=== PATIENT | female | born 1965 | race Caucasian/White ===

== ENCOUNTER 2021-01-20 16:44 | Inpatient (IN) | payer MEDICARE, OTHER ==
[~2021-01-20] VITALS: Ht 170.2 cm; Wt 77.6 kg
--- NOTE | 2021-01-20 16:57 | NUR ---
TO ER BED 13, BIB RA [facility],WHEN ASKED IF W/SI,ANSWERED "I'M TIRED OF TAKING CARE OF MYSELF, AAOX3, BREATHING EVEN AND NON LABORED, CONNECTED TO MONITOR, AWAITING MD ORDERS
--- NOTE | 2021-01-20 17:45 | NUR ---
URINE COLLECTED AND SENT TO LAB
[2021-01-20 19:05] LABS: CALCIUM, SERUM 8.2 mg/dL (8.5-10.1); CARBON DIOXIDE 33 mmol/L (21-32); CHLORIDE 105 mmol/L (98-107); CREATININE 0.6 mg/dL (0.6-1.3); GLUCOSE 99 mg/dL (74-106); POTASSIUM 3.1 mmol/L (3.5-5.1); SODIUM SERUM 142 mmol/L (136-145); UREA NITROGEN, BLOOD 20 mg/dL (7-18)
[2021-01-20 19:12] LABS: ALANINE AMINOTRANSFERASE 17 U/L (12-78); ALBUMIN 2.9 g/dL (3.4-5.0); ALKALINE PHOSPHATASE 107 U/L (46-116); ASPARTATE AMINOTRANSFERASE 13 U/L (15-37); BILIRUBIN,DIRECT 0.1 mg/dL (0.0-0.2); BILIRUBIN,TOTAL 0.3 mg/dL (0.2-1.0); TOTAL PROTEIN, SERUM 6.6 g/dL (6.4-8.2)
[2021-01-20 19:13] LABS: ALCOHOL, BLOOD < 3 mg/dL (0-0)
[2021-01-20 19:14] LABS: ACETAMINOPHEN 10 ug/ml (10-30)
[2021-01-20 20:22] LABS: BASOPHILS % (AUTO) 0.6 % (0.0-2.0); EOSINOPHILS % (AUTO) 1.7 % (0.0-6.0); HEMATOCRIT 31 % (33-45); HEMOGLOBIN 9.5 g/dL (11.5-14.8); LYMPHOCYTES # (AUTO) 1.1 K/uL (0.8-4.8); LYMPHOCYTES % (AUTO) 24.5 % (20.0-44.0); MEAN CORPUSCULAR HGB CONC 31 g/dl (31.0-36.0); MEAN CORPUSCULAR VOLUME 74 fL (82-100); MONOCYTES # (AUTO) 0.5 K/uL (0.1-1.30); MONOCYTES % (AUTO) 11.5 % (2.0-12.0); NEUTROPHILS # (AUTO) 2.8 K/uL (1.8-8.9); NEUTROPHILS % (AUTO) 61.7 % (43.0-81.0); PLATELET COUNT (AUTO) 226 K/uL (150-450); RED BLOOD CELL COUNT(AUTO) 4.16 MIL/uL (4.0-5.2); WHITE BLOOD COUNT (AUTO) 4.5 K/uL (4.3-11.0)
[2021-01-20 21:53] LABS: BILIRUBIN,URINE NEGATIVE (NEGATIVE); COLOR,URINE YELLOW (YELLOW); LEUKOCYTE ESTERASE ,URINE NEGATIVE (NEGATIVE); NITRITE, URINE NEGATIVE (NEGATIVE); PH,URINE 6.5 (5.0-8.0); PROTEIN,URINE NEGATIVE (NEGATIVE); UGLUCOSE NEGATIVE (NEGATIVE); UROBILINOGEN,URINE 0.2 EU/dL (0.2)
[2021-01-21] MEDS ORDERED: POTASSIUM CHLORIDE 20 MEQ TAB.PRT.SR PO ONE ×2 (00:30→01:31)
--- NOTE | 2021-01-21 00:44 | NUR ---
ROOM ASSIGNMENT: 212-2 GPS
--- NOTE | 2021-01-21 01:55 | NUR ---
REPOT GIVEN TO SUDHEER CABRERA FOR KAYCEE
[2021-01-21 03:00] VITALS: BP 134/78
[2021-01-21 03:21] VITALS: BP 134/78
--- NOTE | 2021-01-21 03:21 | NUR ---
GPS ADMISSION NOTE, RECEIVED PATIENT FROM [facility]/ [facility] PATIENT ARRIVED ON THIS UNIT AT 0321 VIA STRETCHER WITH 2 EMT ESCORTS. PATIENT ADMITTED ON A 5150 HOLD FOR DTS. PER HOLD PATIENT IS ALERT AND ORIENTED X 3 BROUGHT IN BY EMS FROM [facility] DUE TO SUICIDAL IDEATIONS. PATIENT IS DEPRESSED, ANGRY, AND DOES NOT WANT TO LIVE ANYMORE. PATIENT WANTS TO END HER LIFE WITH A PLAN TO OVERDOSE ON MEDICATION. PATIENT STATES, " I DO NOT WANT TO GO ON ANYMORE. THE 5150 WAS REVIEWED AND THE DOCUMENTATION IN THE 5150 HOLD APPEARS TO REFLECT THE PRESENTATION OF THE PATIENT. UPON FACE TO FACE ASSESSMENT PATIENT IS NOTED TO BEING ANGRY, DISHEVELED, DEMANDING, UNCOOPERATIVE, AND NEEDS REDIRECTION. PATIENT IS CURRENTLY LYING IN BED AWAKE, HAS NO S/S OR COMPLAINTS OF PAIN. PATIENT IS DISPLAYING NO S/S OF APPARENT DISTRESS. PATIENT BREATHING IS UNLABORED WITH EQUAL RISE AND FALL OF THE CHEST. PATIENT IS ALERT AND ORIENTATED X 3 ON ROOM AIR. PATIENT ASSISTED WITH TURING AND REPOSITIONING Q2HR AND PRN FOR COMFORT AND CIRCULATION. PATIENT HAS NO NEEDS AT THIS TIME. PATIENT DENIES HOMICIDAL IDEATIONS AT THIS TIME. PATIENT REFUSED TO SIGNS ANY PAPER WORK AND WANTS TO DO IT AFTER BREAKFAST. PATIENT ADVISED OF HER HOLD AND PATIENT RIGHTS BOOKLET GIVEN. PATIENT IS UNDER THE PSYCHIATRIC CARE OF DR. MCCLURE AND THE MEDICAL CARE OF DR JIANG. PATIENT BELONGINGS WERE INVENTORIED AND CHECKED FOR CONTRABAND. ALL CONTRABAND REMOVED AND STORED IN PATIENT HALLWAY LOCKER. PATIENT ADVANCED DIRECTIVES PREFERENCE, IMMUNIZATIONS QUESTIONER, NECESSARY PAPERWORK COMPLETED. PATIENT REFUSED FULL SKIN ASSESSMENT. PATIENT ORIENTATED TO ROOM, FLOOR, AND STAFF WITH ALL QUESTIONS ANSWERED. PATIENT EDUCATED ON THE USE OF THE CALL KANG. PATIENT BED SIDE RAILS ARE UP X 2 FOR SAFETY. PATIENT BED IS LOCKED, LOW AND I WILL CONTINUE TO MONITOR THIS PATIENT Q 15 MIN WITH THE HELP OF STAFF TO MAINTAIN SAFETY.
--- NOTE | 2021-01-21 03:25 | NUR ---
PATIENT TRANSFERRED, NO ACUTE DISTRESS NOTED.
[2021-01-21] MEDS ORDERED: ATOR40TA PO (04:51)
[2021-01-21] MEDS ORDERED: OMEP40CA21 PO (04:51)
[2021-01-21] MEDS ORDERED: LURA40TA PO (04:53)
[2021-01-21] MEDS ORDERED: NITR100C6 PO (04:53)
[2021-01-21] MEDS ORDERED: MULT-754 PO (04:54)
[2021-01-21] MEDS ORDERED: BIOT5000 PO (04:55)
[2021-01-21] MEDS ORDERED: FEXO180T94 PO (04:56)
[2021-01-21] MEDS ORDERED: TEMAZEPAM 7.5 MG CAPSULE PO PRN (05:00)
[2021-01-21] MEDS ORDERED: LORAZEPAM 0.5 MG TABLET PO PRN (05:00)
[2021-01-21] MEDS ORDERED: MAGNESIUM HYDROXIDE 30 ML UDC PO PRN (05:00)
[2021-01-21] MEDS ORDERED: BLOOD SUGAR DIAGNOSTIC 1 EACH STRIP IN ONE (05:30)
[2021-01-21 08:00] VITALS: BP 118/72
--- NOTE | 2021-01-21 09:35 | NUR ---
WOUND CARE CONSULT: PT ADAMANTLY REFUSED SKIN ASSESSMENT. REVIEWED CHART, NURSING DOCUMENTATION AND PHOTOS WHICH INDICATE STAGE 4 PRESSURE ULCER TO RT ISCHIUM AND DEEP TISSUE INJURY TO LEFT POSTERIOR KNEE, PRESENT ON ADMISSION. RECOMMENDATIONS MADE FOR WOUND CARE AND SKIN PROTECTION. DISCUSSED WITH NURSING STAFF. MD IN AGREEMENT WITH PLAN OF CARE.
[2021-01-21] MEDS ORDERED: HYDROGEL DRESSING 90 GM TUBE TP PRN (10:00)
[2021-01-21] MEDS ORDERED: Z GUARD REMEDY 2 OZ OINT TP PRN (10:00)
--- NOTE | 2021-01-21 10:05 | NUR ---
Treatment Plan: Pt refused to sign treatment plan and stated "I do not want to sign anything".
--- NOTE | 2021-01-21 10:18 | NUR ---
KATHRYN Initial Plan: Patient currently resides at [facility] located at [address] [address]; ([phone]). KATHRYN spoke with Tre the rail layer and he stated pt is welcomed back upon dc. Pt would want to return back to her facility upon dc. KATHRYN will work with the MD and treatment team to help coordinate.
[2021-01-21] MEDS: HYDROGEL DRESSING 90 GM TUBE TP SCH (12:12)
--- NOTE | 2021-01-21 13:00 | NUR ---
gps customer operations associate: plastic surgeon consult pat (load checker) at bedside and assessed right ischial wound and informed pt that it needs a debridement, pt verbalized understanding and consent signed. excisional debridement done at bedside to right ischial wound, ananth. well. photo taken after wound debridement and place in chart.
--- NOTE | 2021-01-21 14:10 | NUR ---
gps product blending supervisor: psychiatrist dr. oliva talking to pt at bedside at this time.
[2021-01-21 16:00] VITALS: BP 106/58
[2021-01-21] MEDS: ARIPIPRAZOLE 5 MG TABLET PO SCH ×2 (17:44→23:35)
[2021-01-21] MEDS: ATORVASTATIN 40 MG TABLET PO SCH (17:45)
[2021-01-21] MEDS: FEXOFENADINE HCL (60 MG) 60 MG TABLET PO SCH (17:45)
[2021-01-21 20:00] VITALS: BP 112/69
[2021-01-21] MEDS ORDERED: ARIPIPRAZOLE 2 MG TABLET PO SCH (22:00)
[2021-01-22] MEDS: ARIPIPRAZOLE 5 MG TABLET PO SCH ×3 (06:08→17:58)
--- NOTE | 2021-01-22 06:12 | NUR ---
RN NOTES OFFERED TO CHANGE COLOSTOMY BAG, PATIENT REFUSED AND " I DO IT MYSELF, I NEED YOU TO PROVIDE THINGS FOR ME." PATIENT HAS HER OWN COLOSTOMY SUPPLIES. ALSO, AD HERRERA OFFERED TO DO HYGIENE CARE, PATIENT ALSO REFUSED AND TOLD TRACK REPAIR SUPERVISOR TO DO IT LATER.
[2021-01-22 08:00] VITALS: BP 102/60
[2021-01-22] MEDS: MULTIVITAMINS,THERAGRAN 1 UDTAB TABLET PO SCH (08:34)
[2021-01-22] MEDS: HYDROGEL DRESSING 90 GM TUBE TP SCH (08:34)
[2021-01-22] MEDS ORDERED: Medication Not On Formulary EA (Omeprazole 1 CAP) PO SCH (09:00)
[2021-01-22 10:59] LABS: BASOPHILS % (AUTO) 0.6 % (0.0-2.0); EOSINOPHILS % (AUTO) 1.8 % (0.0-6.0); HEMATOCRIT 28 % (33-45); HEMOGLOBIN 8.9 g/dL (11.5-14.8); LYMPHOCYTES # (AUTO) 0.7 K/uL (0.8-4.8); LYMPHOCYTES % (AUTO) 15.8 % (20.0-44.0); MEAN CORPUSCULAR HGB CONC 32 g/dl (31.0-36.0); MEAN CORPUSCULAR VOLUME 72 fL (82-100); MONOCYTES # (AUTO) 0.5 K/uL (0.1-1.30); MONOCYTES % (AUTO) 11.7 % (2.0-12.0); NEUTROPHILS # (AUTO) 3.3 K/uL (1.8-8.9); NEUTROPHILS % (AUTO) 70.1 % (43.0-81.0); PLATELET COUNT (AUTO) 215 K/uL (150-450); WHITE BLOOD COUNT (AUTO) 4.6 K/uL (4.3-11.0)
[2021-01-22 11:11] LABS: CREATININE 0.5 mg/dL (0.6-1.3); POTASSIUM 3.9 mmol/L (3.5-5.1)
[2021-01-22 16:00] VITALS: BP 104/64
[2021-01-22] MEDS: ATORVASTATIN 40 MG TABLET PO SCH (17:58)
[2021-01-22] MEDS: FEXOFENADINE HCL (60 MG) 60 MG TABLET PO SCH (17:59)
[2021-01-22 20:21] VITALS: BP 116/64
[2021-01-22 20:26] VITALS: BP 116/64
[2021-01-23] MEDS: ARIPIPRAZOLE 5 MG TABLET PO SCH ×4 (00:41→17:28)
[2021-01-23 08:00] VITALS: BP 120/68
[2021-01-23] MEDS: MULTIVITAMINS,THERAGRAN 1 UDTAB TABLET PO SCH (09:00)
[2021-01-23] MEDS: HYDROGEL DRESSING 90 GM TUBE TP SCH (09:00)
[2021-01-23 16:00] VITALS: BP 122/68
[2021-01-23] MEDS: FEXOFENADINE HCL (60 MG) 60 MG TABLET PO SCH (17:28)
[2021-01-23] MEDS: ATORVASTATIN 40 MG TABLET PO SCH (17:28)
[2021-01-24] MEDS: ARIPIPRAZOLE 5 MG TABLET PO SCH ×2 (00:10→06:18)
--- NOTE | 2021-01-24 01:24 | NUR ---
Wound care given. Pictures taken. Pt. cooperative. Does, however, prefer female staff.
[2021-01-24 08:00] VITALS: BP 100/62
--- NOTE | 2021-01-24 08:00 | NUR ---
1:1 CAREGIVER NOT PROVIDED BY NURSING PARAMEDIC RN.
[2021-01-24] MEDS: HYDROGEL DRESSING 90 GM TUBE TP SCH (09:18)
[2021-01-24] MEDS: MULTIVITAMINS,THERAGRAN 1 UDTAB TABLET PO SCH (09:18)
--- NOTE | 2021-01-24 11:07 | NUR ---
KATHRYN Coordination of Care: Patient will follow up with (Psychiatrist) Dr. Caro Paulino located at [address], [place] [address];([phone]) February 14 at 12PM via zoom. Per Josh law office receptionist.
--- NOTE | 2021-01-24 15:48 | NUR ---
Individual Therapy: SW met with pt. at bedside. Pt. stated her current mood is "okay". Pt. wanted to discuss her DC Date. Pt. stated she is agreeable to return to previous facility: [facility] and stated she already currently has a therapist, Kim Russell & a psychiatrist at [facility]. Pt. denies any current SI. Pt. stated she did not want to process anything else with SW. SW discussed with other SW, Jai who stated thats he has discussed potential DC date with pt. Noted.
[2021-01-24 16:00] VITALS: BP 121/69
[2021-01-24] MEDS: FEXOFENADINE HCL (60 MG) 60 MG TABLET PO SCH (17:00)
[2021-01-24] MEDS: ATORVASTATIN 40 MG TABLET PO SCH (17:00)
[2021-01-24 20:03] VITALS: BP 111/56
[2021-01-24] MEDS ORDERED: ARIPIPRAZOLE 5 MG TABLET PO SCH (21:00)
[2021-01-24] MEDS: MAG HYDROX/AL HYDROX/SIMETH 30 ML UDC PO PRN (22:50)
[2021-01-25 08:00] VITALS: BP 101/58
[2021-01-25] MEDS ORDERED: ARIPIPRAZOLE 5 MG TABLET PO SCH ×2 (08:00→08:41)
[2021-01-25] MEDS: MULTIVITAMINS,THERAGRAN 1 UDTAB TABLET PO SCH (08:58)
[2021-01-25] MEDS ORDERED: ARIPIPRAZOLE 2 MG TABLET PO SCH (09:00)
[2021-01-25] MEDS: HYDROGEL DRESSING 90 GM TUBE TP SCH (09:10)
[2021-01-25] MEDS: MAG HYDROX/AL HYDROX/SIMETH 30 ML UDC PO PRN (12:03)
--- NOTE | 2021-01-25 12:04 | NUR ---
MAALOX GIVEN FOR INDIGESTION. WILL CONTINUE TO MONITOR.
[2021-01-25] MEDS ORDERED: LORAZEPAM 1 MG TABLET PO STA (12:44)
--- NOTE | 2021-01-25 12:52 | NUR ---
PER PSYCHIATRIST ATIVAN 1MG PO X1 GIVEN FOR AGITATION AND SCREAMING. WILL CONTINUE TO MONITOR.
[2021-01-25] MEDS: ARIPIPRAZOLE 5 MG TABLET PO SCH (13:52)
[2021-01-25 15:51] VITALS: BP 133/72
[2021-01-25] MEDS: FEXOFENADINE HCL (60 MG) 60 MG TABLET PO SCH (17:02)
[2021-01-25] MEDS: ATORVASTATIN 40 MG TABLET PO SCH (17:02)
[2021-01-25 20:15] VITALS: BP 110/71
--- NOTE | 2021-01-26 06:38 | NUR ---
RN NOTES, PATIENT AWAKE AT THIS TIME, WITH ADEQUATE HOURS OF SLEEP, REFUSED WOUND TREATMENT LAST NIGHT, STATED WANT TO HAVE IT IN AM, EXPLAINED RISKS AND BENEFITS, STILL REFUSE, NO SIGNIFICANT CHANGE IN CONDITION, WITH FLAT AFFECT, DENIES SI/HI, NO EPISODES OF AGITATION/AGGRESSIVE BEHAVIOR NOTED DURING THE NIGHT, WILL ENDORSE CONTINUITY OF CARE TO ONCOMING NURSE.
[2021-01-26 08:00] VITALS: BP 100/53
[2021-01-26] MEDS: ARIPIPRAZOLE 5 MG TABLET PO SCH (08:53)
[2021-01-26] MEDS: MULTIVITAMINS,THERAGRAN 1 UDTAB TABLET PO SCH (08:53)
[2021-01-26] MEDS: HYDROGEL DRESSING 90 GM TUBE TP SCH (09:18)
--- NOTE | 2021-01-26 10:00 | NUR ---
RN-NOTES DID WOUND TREATMENT ORDERED. PATIENT TOLERATED WELL.
--- NOTE | 2021-01-26 11:42 | NUR ---
Court Hearing: Patient's court hearing for 7740 was today and it was upheld for GD.
--- NOTE | 2021-01-26 11:56 | NUR ---
Transportation: [employer] [facility] is set for 01/31 at 1PM through [employer] ([phone]) who quoted $85.50 and the pt will pay for this.
--- NOTE | 2021-01-26 11:57 | NUR ---
SW Note: SW noted of pt her dc date and that she would have to pay for transportation through [employer] ([phone]) who quoted $85.50. Pt was agreeable of paying for this.
--- NOTE | 2021-01-26 13:01 | NUR ---
RN-NOTES BOX MACHINE OPERATOR GIVEN THE PATIENT THE WRIT FORM TO FILL UP, BUT PATIENT STATED" I WILL BE DISCHARGE BY SUNDAY AND THERE IS NO POINT TO FILE A WRIT IF ITS GOING TO BE DONE BY SUNDAY". KATHRYN AND DR. MCCLURE WAS MADE AWARE.
--- NOTE | 2021-01-26 13:24 | NUR ---
Transportation: [employer] [facility] is set for 01/31 at 1PM through [employer] ([phone]) who quoted $85.50. Pt spoke with [facility] [employer] [facility] and paid for transportation. SW was present.
[2021-01-26 16:00] VITALS: BP 111/70
[2021-01-26] MEDS: ATORVASTATIN 40 MG TABLET PO SCH (17:33)
[2021-01-26] MEDS: FEXOFENADINE HCL (60 MG) 60 MG TABLET PO SCH (17:33)
[2021-01-26 20:00] VITALS: BP 111/62
[2021-01-26] MEDS: ACETAMINOPHEN 325 MG TABLET PO PRN (20:19)
[2021-01-26] MEDS ORDERED: ARIPIPRAZOLE 5 MG TABLET PO SCH (21:00)
[2021-01-27 08:00] VITALS: BP 108/64
[2021-01-27] MEDS: MULTIVITAMINS,THERAGRAN 1 UDTAB TABLET PO SCH (08:34)
[2021-01-27] MEDS: ARIPIPRAZOLE 5 MG TABLET PO SCH ×2 (08:34→20:37)
[2021-01-27] MEDS: HYDROGEL DRESSING 90 GM TUBE TP SCH (08:35)
--- NOTE | 2021-01-27 10:30 | NUR ---
RN-NOTES DID WOUND TREATMENT ORDERED. PATIENT TOLERATED WELL.
[2021-01-27 16:00] VITALS: BP 119/75
[2021-01-27] MEDS: ATORVASTATIN 40 MG TABLET PO SCH (17:10)
[2021-01-27] MEDS: FEXOFENADINE HCL (60 MG) 60 MG TABLET PO SCH (17:10)
[2021-01-27 20:00] VITALS: BP 100/57
[2021-01-27] MEDS: MAG HYDROX/AL HYDROX/SIMETH 30 ML UDC PO PRN (20:51)
--- NOTE | 2021-01-27 20:52 | NUR ---
RN NOTES: PT. C/O INDIGESTIONS PRN MAALOX 30 ML PO GIVEN PER PT. REQUEST , WILL CONTINUE TO MONITOR.
[2021-01-28 08:00] VITALS: BP 100/59
[2021-01-28] MEDS: MULTIVITAMINS,THERAGRAN 1 UDTAB TABLET PO SCH (08:34)
[2021-01-28] MEDS: ARIPIPRAZOLE 5 MG TABLET PO SCH ×3 (08:34→20:16)
[2021-01-28] MEDS: HYDROGEL DRESSING 90 GM TUBE TP SCH (08:35)
[2021-01-28] MEDS: ACETAMINOPHEN 325 MG TABLET PO PRN (14:25)
[2021-01-28] MEDS: MAG HYDROX/AL HYDROX/SIMETH 30 ML UDC PO PRN (14:51)
[2021-01-28 15:42] VITALS: BP 125/78
[2021-01-28] MEDS: ATORVASTATIN 40 MG TABLET PO SCH (17:48)
[2021-01-28] MEDS: FEXOFENADINE HCL (60 MG) 60 MG TABLET PO SCH (17:49)
[2021-01-28 20:41] VITALS: BP 109/78
[2021-01-29 08:00] VITALS: BP 116/65
[2021-01-29] MEDS: MULTIVITAMINS,THERAGRAN 1 UDTAB TABLET PO SCH (08:28)
[2021-01-29] MEDS: ARIPIPRAZOLE 5 MG TABLET PO SCH ×2 (08:28→20:49)
[2021-01-29] MEDS: HYDROGEL DRESSING 90 GM TUBE TP SCH (08:28)
[2021-01-29 16:00] VITALS: BP 111/61
[2021-01-29] MEDS: MAG HYDROX/AL HYDROX/SIMETH 30 ML UDC PO PRN (16:52)
[2021-01-29] MEDS: ATORVASTATIN 40 MG TABLET PO SCH (17:37)
[2021-01-29] MEDS: FEXOFENADINE HCL (60 MG) 60 MG TABLET PO SCH (17:38)
[2021-01-29 20:00] VITALS: BP 102/82
[2021-01-30 08:00] VITALS: BP 120/74
[2021-01-30] MEDS: MULTIVITAMINS,THERAGRAN 1 UDTAB TABLET PO SCH (09:06)
[2021-01-30] MEDS: ARIPIPRAZOLE 5 MG TABLET PO SCH ×2 (09:06→20:42)
[2021-01-30] MEDS: HYDROGEL DRESSING 90 GM TUBE TP SCH (09:07)
[2021-01-30] MEDS ORDERED: LOPERAMIDE HCL (2 MG CAP) 2 MG CAPSULE PO PRN (11:00)
[2021-01-30 16:00] VITALS: BP 109/68
[2021-01-30] MEDS: FEXOFENADINE HCL (60 MG) 60 MG TABLET PO SCH (19:08)
[2021-01-30] MEDS: ATORVASTATIN 40 MG TABLET PO SCH (19:09)
[2021-01-30 19:40] VITALS: BP 100/56
--- NOTE | 2021-01-30 21:40 | NUR ---
RN NOTES: PT. REFUSED WEEKLY SKIN ASSESSMENT AND PICTURES TAKEN , PER PT. MY SKIN IS FINE , PT. BEHAVIOR UNCOOPERTIVE EASILY AGITATED ,PARANOID , ENCOURAGE FOR SKIN ASSESSMENT RISKS BENEFITS EXPLAINED ,PT. STRONGLY REFUSED.
--- NOTE | 2021-01-31 06:40 | NUR ---
RN NOTES: PT. REFUSED WEEKLY SKIN ASSESSMENT AND PICTURES TAKEN , PER PT. MY SKIN IS FINE AND I DONT WANT TAKE ANY PHOTS , PT. BEHAVIOR UNCOOPERTIVE EASILY AGITATED ,PARANOID , ENCOURAGE FOR SKIN ASSESSMENT RISKS BENEFITS EXPLAINED ,PT. STRONGLY REFUSED.
[2021-01-31 08:00] VITALS: BP 111/61
--- NOTE | 2021-01-31 08:16 | NUR ---
RN OPENING NOTE RECEIVE REPORT FROM INSURANCE ACCOUNT ASSISTANT NURSE. PATIENT IN STABLE CONDITION. PATIENT REFUSE SKIN ASSESSMENT PER INSURANCE ACCOUNT ASSISTANT NURSE. A/O X3-4. MEMBRENO CATHETER DRAINING WELL. ABLE TO CHANGE COLOSTOMY BAG BY HER SELF. ALL SAFETY MEASURE IN PLACE BE ON LOWEST POSITION WITH HOB ELEVATED AND 3 SIDE RAIL UP. WILL CONTINUE TO MONITOR.
--- NOTE | 2021-01-31 09:04 | NUR ---
KATHRYN Discharge Plan: Patient will discharge back to [facility] located at [address] [facility] [address]; ([phone]). [facility] [facility] ([phone]) will pick pulling machine operator pt at 1PM. KATHRYN spoke with Tre the parking lot laborer ([phone]) and he stated pt is welcomed back upon dc. Patient is alert and oriented x3. Patient denies suicidal or homicidal ideation. Patient denies visual/auditory hallucinations. Patient will follow up with (Primary Doctor) Dr. Igor Sepulveda located at [address] [place] [address] [address], [place] [address]; ([phone]) will follow up with the pt at the [facility] and [facility]. Patient will follow up with (Psychiatrist) Dr. Caro Paulino located at [facility] [address] [place] [address] [address], [place] [address]; ([phone]) on February 14 at 12PM via zoom. Patient presents with euthymic mood and congruent affect.
[2021-01-31] MEDS: ARIPIPRAZOLE 5 MG TABLET PO SCH (09:08)
[2021-01-31] MEDS: MULTIVITAMINS,THERAGRAN 1 UDTAB TABLET PO SCH (09:10)
[2021-01-31] MEDS: HYDROGEL DRESSING 90 GM TUBE TP SCH (09:14)
--- NOTE | 2021-01-31 10:12 | NUR ---
RN-CO: DR MCCLURE ORDERED VIA PHONE CALL TO DISCONTINUE HOLD AND DISCHARGE PATIENT TO [facility] TODAY, NOTED. PATIENT IS AWARE AND IN AGREEMENT OF HER DISCHARGE, SHE DENIED SUICIDAL AND HOMICIDAL IDEATION. DENIED AH AND VH. CAN DECIDE ON HER OWN. A/O X4, NON AMBULATORY. HER MEDICATIONS WILL BE CALLED TO [facility] IN [place]. [facility] WILL PICK HER UP AND ALL HER BELONGINGS WILL BE GIVEN BACK TO HER. DISCHARGE INSTRUCTIONS AND HER PRESCRIPTIONS WAS DISCUSSED AND SHE VERBALIZED UNDERSTANDING.
--- NOTE | 2021-01-31 11:37 | NUR ---
RN-CO: DR MCCLURE SEEN AND EXAMINED THE PT TODAY, DR BETO JIANG, ANALYST SALES MEDICALLY CLEARED PT FOR DISCHARGE. I CALLED [facility] IN [place] TO ORDER HER MEDICATIONS. MEMBRENO CATHETER (LEG BAG) WAS REINSERTED PER PT REQUEST. SHE TOLERATED WELL AND DRAINING LIGHT YELLOW URINE.
--- NOTE | 2021-01-31 12:14 | NUR ---
RN-CO: DISCHARGE PAPERS WERE DISCUSSED TO PT AND SHE VERBALIZED UNDERSTANDING. REMINDED HER THAT HER APPT TO HER PSYCHIATRIST WILL BE ON FEBRUARY 14, 2021 AT 12:00 PM VIA ZOOM. COPY OF THE APPT WAS GIVEN TO HER. Addendum: 01/31/21 at 1216 by JORDEN DELGADO RN RN-CO: PT REFUSED SKIN REASSESSMENT AND PHOTOS TO BE TAKEN.
--- NOTE | 2021-01-31 13:18 | NUR ---
RN-CO: PT WAS PICKED UP BY [facility].
== END 2021-01-31 13:21 | disposition home or self-care (01) | DRG 876 ==
LOC: ER 17:22 → GPS 01-21 02:55
PROVIDERS: ADMIT Psychiatry & Neurology Psychosomatic Medicine; ATTEND Nurse Practitioner Acute Care
PROC: 0KBP0ZZ Excision of Left Hip Muscle, Open Approach (ICD-10-PCS; principal; 2021-01-21)
DX: F25.0 Schizoaffective disorder, bipolar type (principal); L89.214 Pressure ulcer of right hip, stage 4; R45.851 Suicidal ideations; E44.0 Moderate protein-calorie malnutrition; F60.3 Borderline personality disorder; F32.9 Major depressive disorder, single episode, unspecified; E78.5 Hyperlipidemia, unspecified; I69.369 Other paralytic syndrome following cerebral infarction affecting unspecified side; E87.6 Hypokalemia; E88.09 Other disorders of plasma-protein metabolism, not elsewhere classified; F41.9 Anxiety disorder, unspecified; Z85.3 Personal history of malignant neoplasm of breast; Z90.12 Acquired absence of left breast and nipple; Z20.822 Contact with and (suspected) exposure to COVID-19
CPT/HCPCS: 36415; 80048-TC; 80061-TC; 80076-TC; 85025-TC; 87081-TC; A6248; A6253; C9803; G0480